=== PATIENT | female | born 1990 | race American Indian/Alaskan Native ===

== ENCOUNTER 2017-01-04 03:45 | Emergency (ER) | payer MEDICAID ==
--- NOTE | 2017-01-04 05:32 | Emergency Department Report ---
ED ENT HPI - General Chief complaint: Dental/Oral Stated complaint: FACIAL PAIN Time Seen by Provider: 01/04/17 05:22 Source: patient Mode of arrival: Ambulatory Limitations: No Limitations - History of Present Illness Initial comments: 26 y/o female complain of bilateral toothache x 3 days.pt state she need both wisdom tooth extracted .pt has mild edema noted to left jaw . MD complaint: tooth pain Onset/Timin -: days(s) Severity: mild Severity scale (0 -10): 3 Quality: aching Consistency: constant Improves with: none Worsens with: none Context- Dental: poor dental care Associated Symptoms: toothache - Related Data Previous Rx's Medication Instructions Recorded Last Taken Type Diclofenac Dr [Milo Oliver] 75 mg PO Q12H #30 tablet 11/10/14 Unknown Rx Prednisone [Prednisone 10 mg 10 mg PO .TAPER #1 tab.ds.pk 11/10/14 Unknown Rx (6-Day Pack, 21 Tabs)] Loratadine [Claritin] 10 mg PO DAILY #30 tablet 10/26/15 Unknown Rx Sulfamethoxazole/Trimethoprim 1 each PO BID #10 tablet 10/26/15 Unknown Rx [Bactrim DS TAB] HYDROcodone/APAP 10-325 [[place] 1 each PO Q8HR PRN #20 tablet 12/01/15 Unknown Rx 10/325] Erythromycin [Erythromycin Ophth 1 applicatio OU Q6HR #1 tube 06/10/16 Unknown Rx Oint] Acetaminophen/Codeine [Tylenol #3] 1 tab PO Q4HR PRN #15 tablet 01/04/17 Unknown Rx Penicillin Vk [Veetids TAB] 250 mg PO QID #28 tablet 01/04/17 Unknown Rx Allergies Allergy/AdvReac Type Severity Reaction Status Date / Time No Known Allergies Allergy Unverified 01/04/17 03:55 ED Dental HPI - General Chief complaint: Dental/Oral Stated complaint: FACIAL PAIN Time Seen by Provider: 01/04/17 05:22 Source: patient Mode of arrival: Ambulatory Limitations: No Limitations - Related Data Previous Rx's Medication Instructions Recorded Last Taken Type Diclofenac Dr [Milo Oliver] 75 mg PO Q12H #30 tablet 11/10/14 Unknown Rx Prednisone [Prednisone 10 mg 10 mg PO .TAPER #1 tab.ds.pk 11/10/14 Unknown Rx (6-Day Pack, 21 Tabs)] Loratadine [Claritin] 10 mg PO DAILY #30 tablet 10/26/15 Unknown Rx Sulfamethoxazole/Trimethoprim 1 each PO BID #10 tablet 10/26/15 Unknown Rx [Bactrim DS TAB] HYDROcodone/APAP 10-325 [[place] 1 each PO Q8HR PRN #20 tablet 12/01/15 Unknown Rx 10/325] Erythromycin [Erythromycin Ophth 1 applicatio OU Q6HR #1 tube 06/10/16 Unknown Rx Oint] Acetaminophen/Codeine [Tylenol #3] 1 tab PO Q4HR PRN #15 tablet 01/04/17 Unknown Rx Penicillin Vk [Veetids TAB] 250 mg PO QID #28 tablet 01/04/17 Unknown Rx Allergies Allergy/AdvReac Type Severity Reaction Status Date / Time No Known Allergies Allergy Unverified 01/04/17 03:55 ED Review of Systems ROS: Stated complaint: FACIAL PAIN Other details as noted in HPI Constitutional: denies: chills, fever Eyes: denies: eye pain, eye discharge, vision change ENT: dental pain. denies: ear pain, throat pain Respiratory: denies: cough, shortness of breath, wheezing Cardiovascular: denies: chest pain, palpitations Endocrine: no symptoms reported Gastrointestinal: denies: abdominal pain, nausea, diarrhea Genitourinary: denies: urgency, dysuria, discharge Musculoskeletal: denies: back pain, joint swelling, arthralgia Skin: denies: rash, lesions Neurological: denies: headache, weakness, paresthesias Psychiatric: denies: anxiety, depression Hematological/Lymphatic: denies: easy bleeding, easy bruising ED Past Medical Hx - Past Medical History Previous Medical History?: No - Surgical History Additional Surgical History: x 2, surgery for broken arm (right forearm) - Social History Smoking Status: Current Every Day Smoker Substance Use Type: Alcohol - Medications Home Medications: Home Medications Medication Instructions Recorded Confirmed Last Taken Type Diclofenac Dr [Milo Oliver] 75 mg PO Q12H #30 tablet 11/10/14 Unknown Rx Prednisone [Prednisone 10 mg 10 mg PO .TAPER #1 tab.ds.pk 11/10/14 Unknown Rx (6-Day Pack, 21 Tabs)] Loratadine [Claritin] 10 mg PO DAILY #30 tablet 10/26/15 Unknown Rx Sulfamethoxazole/Trimethoprim 1 each PO BID #10 tablet 10/26/15 Unknown Rx [Bactrim DS TAB] HYDROcodone/APAP 10-325 [[place] 1 each PO Q8HR PRN #20 tablet 12/01/15 Unknown Rx 10/325] Erythromycin [Erythromycin Ophth 1 applicatio OU Q6HR #1 tube 06/10/16 Unknown Rx Oint] Acetaminophen/Codeine [Tylenol #3] 1 tab PO Q4HR PRN #15 tablet 01/04/17 Unknown Rx Penicillin Vk [Veetids TAB] 250 mg PO QID #28 tablet 01/04/17 Unknown Rx ED Physical Exam - General Limitations: No Limitations General appearance: alert, in no apparent distress - Head Head exam: Present: atraumatic, normocephalic - Eye Eye exam: Present: normal appearance, PERRL Pupils: Present: normal accommodation - ENT ENT exam: Present: mucous membranes dry, mucous membranes moist - Expanded ENT Exam Expanded Mouth exam: Absent: drooling, trismus, muffled voice Teeth exam: Present: dental caries, gingival enlargement, other (bilateral wisdom teeth ) - Neck Neck exam: Present: normal inspection - Respiratory Respiratory exam: Present: normal lung sounds bilaterally. Absent: respiratory distress - Cardiovascular Cardiovascular Exam: Present: regular rate, normal rhythm. Absent: systolic murmur, diastolic murmur, rubs, gallop - GI/Abdominal GI/Abdominal exam: Present: soft, normal bowel sounds - Extremities Exam Extremities exam: Present: normal inspection - Back Exam Back exam: Present: normal inspection - Neurological Exam Neurological exam: Present: alert, oriented X3 - Psychiatric Psychiatric exam: Present: normal affect, normal mood - Skin Skin exam: Present: warm, dry, intact, normal color. Absent: rash ED Course Vital Signs 01/04/17 03:55 Temperature 98.7 F Pulse Rate 78 Respiratory 20 Rate Blood Pressure 123/77 O2 Sat by Pulse 100 Oximetry ED Medical Decision Making - Medical Decision Making bilateral wisdom teeth pain pt has soft tooth impaction to the left wisdom tooth pt to follow up with oral surgeon Critical care attestation.: If time is entered above; I have spent that time in minutes in the direct care of this critically ill patient, excluding procedure time. ED Disposition Clinical Impression: Tooth ache Disposition: DISCHARGED TO HOME OR SELFCARE Is pt being admited?: No Does the pt Need Aspirin: No Condition: Stable Instructions: Toothache (ED) Prescriptions: Acetaminophen/Codeine [Tylenol #3] 1 tab PO Q4HR PRN #15 tablet PRN Reason: Pain Penicillin Vk [Veetids TAB] 250 mg PO QID #28 tablet Referrals: PRIMARY CARE, [Primary Care Provider] - 3-5 Days Forms: Work/School Release Form(ED) Time of Disposition: 05:36
[2017-01-04 06:20] VITALS: BP 123/88
== END 2017-01-04 06:19 | disposition home or self-care (01) ==
LOC: ED 03:45
DX: K08.89 Other specified disorders of teeth and supporting structures (principal)
CPT/HCPCS: 99282

== ENCOUNTER 2017-11-02 19:29 | Emergency (ER) | payer MEDICAID ==
--- NOTE | 2017-11-02 22:15 | Emergency Department Report ---
ED Female HPI - General Chief complaint: Vaginal Bleeding Stated complaint: BLEEDING 9 WEEKS Time Seen by Provider: 11/02/17 21:51 Source: patient Mode of arrival: Ambulatory Limitations: No Limitations - History of Present Illness Initial comments: pt is a 27 y/o aaf wtih 9 weeks who presents for vaginal bleeding x 1 day pink, ocassional clots tp denies abdominal pain no pelvic pain no n/v no fever or chills Complaint: vaginal bleeding, pelvic pain Onset/Timin -: days(s) Radiation: non-radiating Severity: moderate Severity scale (0 -10): 2 Quality: cramping Consistency: intermittent Improves with: none Worsens with: none Are you Now?: Yes (9 weeks) Last Menstrual Period: 09/02/17 EDC: 06/09/18 Associated Symptoms: vaginal bleeding. denies: vaginal discharge, abdominal pain, nausea/vomiting, fever/chills, dysuria, weakness - Related Data Sexually active: Yes : 5 Para: 2 A: 2 Previous Rx's Medication Instructions Recorded Last Taken Type Diclofenac Dr [Voltjames Oliver] 75 mg PO Q12H #30 tablet 11/10/14 Unknown Rx Prednisone [Prednisone 10 mg 10 mg PO .TAPER #1 tab.ds.pk 11/10/14 Unknown Rx (6-Day Pack, 21 Tabs)] Loratadine [Claritin] 10 mg PO DAILY #30 tablet 10/26/15 Unknown Rx Sulfamethoxazole/Trimethoprim 1 each PO BID #10 tablet 10/26/15 Unknown Rx [Bactrim DS TAB] HYDROcodone/APAP 10-325 [[place] 1 each PO Q8HR PRN #20 tablet 12/01/15 Unknown Rx 10/325] Erythromycin [Erythromycin Ophth 1 applicatio OU Q6HR #1 tube 06/10/16 Unknown Rx Oint] Acetaminophen/Codeine [Tylenol #3] 1 tab PO Q4HR PRN #15 tablet 01/04/17 Unknown Rx Penicillin Vk [Veetids TAB] 250 mg PO QID #28 tablet 01/04/17 Unknown Rx Allergies Allergy/AdvReac Type Severity Reaction Status Date / Time No Known Allergies Allergy Unverified 01/04/17 03:55 ED Review of Systems ROS: Stated complaint: BLEEDING 9 WEEKS Other details as noted in HPI Constitutional: denies: chills, fever Eyes: denies: eye pain, eye discharge, vision change ENT: denies: ear pain, throat pain Respiratory: denies: cough, shortness of breath, wheezing Cardiovascular: denies: chest pain, palpitations Endocrine: no symptoms reported Gastrointestinal: denies: abdominal pain, nausea, vomiting, hematemesis Genitourinary: denies: urgency, dysuria, frequency, hematuria Musculoskeletal: denies: back pain, joint swelling, arthralgia Skin: denies: rash, lesions Neurological: denies: headache, weakness, paresthesias Psychiatric: denies: anxiety, depression Hematological/Lymphatic: denies: easy bleeding, easy bruising ED Past Medical Hx - Surgical History Additional Surgical History: x 2, surgery for broken arm (right forearm) - Social History Smoking Status: Current Every Day Smoker Substance Use Type: Alcohol - Medications Home Medications: Home Medications Medication Instructions Recorded Confirmed Last Taken Type Diclofenac Dr [Voltaren Dr] 75 mg PO Q12H #30 tablet 11/10/14 Unknown Rx Prednisone [Prednisone 10 mg 10 mg PO .TAPER #1 tab.ds.pk 11/10/14 Unknown Rx (6-Day Pack, 21 Tabs)] Loratadine [Claritin] 10 mg PO DAILY #30 tablet 10/26/15 Unknown Rx Sulfamethoxazole/Trimethoprim 1 each PO BID #10 tablet 10/26/15 Unknown Rx [Bactrim DS TAB] HYDROcodone/APAP 10-325 [[place] 1 each PO Q8HR PRN #20 tablet 12/01/15 Unknown Rx 10/325] Erythromycin [Erythromycin Ophth 1 applicatio OU Q6HR #1 tube 06/10/16 Unknown Rx Oint] Acetaminophen/Codeine [Tylenol #3] 1 tab PO Q4HR PRN #15 tablet 01/04/17 Unknown Rx Penicillin Vk [Veetids TAB] 250 mg PO QID #28 tablet 01/04/17 Unknown Rx ED Physical Exam - General Limitations: No Limitations General appearance: alert, in no apparent distress - Head Head exam: Present: atraumatic, normocephalic - Eye Eye exam: Present: normal appearance - ENT ENT exam: Present: mucous membranes moist - Neck Neck exam: Present: normal inspection - Respiratory Respiratory exam: Present: normal lung sounds bilaterally. Absent: respiratory distress - Cardiovascular Cardiovascular Exam: Present: regular rate, normal rhythm. Absent: systolic murmur, diastolic murmur, rubs, gallop - GI/Abdominal GI/Abdominal exam: Present: soft, normal bowel sounds - Rectal Rectal exam: Present: deferred - External exam: Present: normal external exam Speculum exam: Present: other (pt deferres vaginal exam to PRICING DIRECTOR follow up ) - Extremities Exam Extremities exam: Present: normal inspection - Back Exam Back exam: Present: normal inspection, full ROM. Absent: tenderness, CVA tenderness (R), CVA tenderness (L), muscle spasm, paraspinal tenderness, vertebral tenderness, rash noted - Neurological Exam Neurological exam: Present: alert, oriented X3, CN II-XII intact, normal gait - Psychiatric Psychiatric exam: Present: normal affect, normal mood - Skin Skin exam: Present: warm, dry, intact, normal color. Absent: rash ED Course Vital Signs 11/02/17 11/02/17 11/02/17 19:48 19:51 22:29 Temperature 98.8 F Pulse Rate 78 75 70 Respiratory 16 Rate Blood Pressure 115/78 115/79 Blood Pressure [Left] O2 Sat by Pulse 99 100 100 Oximetry 11/02/17 22:33 Temperature 98.2 F Pulse Rate Respiratory 18 Rate Blood Pressure Blood Pressure 109/78 [Left] O2 Sat by Pulse 100 Oximetry ED Medical Decision Making - Lab Data Result diagrams: 11/02/17 21:56 Laboratory Tests 11/02/17 11/02/17 11/02/17 21:53 21:56 21:56 WBC 11.5 H RBC 4.44 Hgb 12.0 Hct 36.7 MCV 83 MCH 27 L MCHC 33 RDW 14.4 Plt Count 324 Lymph % (Auto) 28.2 [place] % (Auto) 6.7 Eos % (Auto) 1.3 Baso % (Auto) 0.6 Lymph # 3.2 [place] # 0.8 Eos # 0.2 Baso # 0.1 Seg Neutrophils % 63.2 Seg Neutrophils # 7.2 HCG, Quant 8559 H Urine Color Yellow Urine Turbidity Clear Urine pH 5.0 Ur Specific [place] 1.014 Urine Protein <15 mg/dl Urine Glucose (UA) Neg Urine Ketones Neg Urine Blood Neg Urine Nitrite Neg Urine Bilirubin Neg Urine Urobilinogen < 2.0 Ur Leukocyte Esterase Neg Urine WBC (Auto) 2.0 Urine RBC (Auto) < 1.0 U Epithel Cells (Auto) 1.0 - Medical Decision Making pt is a 27 y/o aaf wtih 9 weeks who presents for vaginal bleeding x 1 day pink, ocassional clots tp denies abdominal pain no pelvic pain no n/v no fever or chills exam: abd bs normal soft nontender pt deferrs vaginal exam to stockroom helper follow up, labs noted ua: norm, cbc: wbc 11.5, hc us: Gestational sac in uterus, no fefinitive pole identified , could reflect early gestation versus missed ab. US: likely demise, pt advised of all diagnostic results, this is 5 th G5, P2, A2, spontanious 1 this episode, will follow up with Arin MENENDEZ or Zaid tomorrow given referral to Zaid Castorena, pt verbalized agreement and understanding of same. Critical care attestation.: If time is entered above; I have spent that time in minutes in the direct care of this critically ill patient, excluding procedure time. ED Disposition Clinical Impression: Threatened miscarriage Disposition: DC-01 TO HOME OR SELFCARE Is pt being admited?: No Does the pt Need Aspirin: No Condition: Good Instructions: Threatened Miscarriage (ED) Additional Instructions: followup with your PRICING DIRECTOR tomorrow as discussed Referrals: PRIMARY CAREMD [Primary Care Provider] - 3-5 Days LORIE HERNANDEZ MD [Staff Physician] - 3-5 Days Forms: Work/School Release Form(ED) Time of Disposition: 00:45
[2017-11-02 22:17] LABS: Basophils % (Auto) 0.6 % (0.0-1.8); Eosinophils % (Auto) 1.3 % (0.0-4.3); Hematocrit 36.7 % (30.3-42.9); Mean Corpuscular HGB Conc 33 % (30-34); Mean Corpuscular Hemoglobin 27 pg (28-32); Mean Corpuscular Volume 83 fl (79-97); Platelet Count 324 K/mm3 (140-440); Red Blood Count 4.44 M/mm3 (3.65-5.03); Red Cell Distribution Width 14.4 % (13.2-15.2); White Blood Count 11.5 K/mm3 (4.5-11.0)
[2017-11-02 22:22] LABS: Bilirubin,Urine NEG (Negative); Blood,Urine NEG (Negative); Ketones,Urine NEG (Negative); Leukocyte Esterase,Urine NEG (Negative); Nitrite,Urine NEG (Negative); Protein,Urine <15 mg/dL mg/dL (Negative); Urobilinogen,Urine < 2.0 mg/dL (<2.0)
[2017-11-02 22:33] VITALS: BP 109/78
[2017-11-02 22:40] LABS: RBC,Urine < 1.0 /HPF (0.0-6.0)
--- NOTE | 2017-11-02 23:56 | Ultrasound Report ---
FINAL REPORT EXAM: US OB TRANSVAGINAL HISTORY: vaginal bleeding TECHNIQUE: Ultrasound obstetrical transvaginal PRIORS: None. FINDINGS: There is a small gestational sac present within the uterus measuring 1.68 centimeters. By sac diameter estimated at 6 weeks 4 days There is no pole identified. There is few echoes present within the sac. Left ovary is 1.98 x 1.32 x 1.67 centimeters Right ovary is 2.05 x 2.33 x 3.15 centimeters. No abnormal adnexal mass identified No free fluid is seen within the cul-de-sac. IMPRESSION: Gestational sac seen within the uterus. No definitive pole identified. Could reflect very early gestation versus missed AB. Continued followup recommended
--- NOTE | 2017-11-03 00:02 | Ultrasound Report ---
FINAL REPORT EXAM: US OB < = 14 WEEKS FETUS HISTORY: vaginal bleeding TECHNIQUE: PRIORS: None. FINDINGS: There is a small gestational sac present within the uterus measuring 1.68 centimeters. By sac diameter estimated at 6 weeks 4 days There is no pole identified. There is few echoes present within the sac. Left ovary is 1.98 x 1.32 x 1.67 centimeters Right ovary is 2.05 x 2.33 x 3.15 centimeters. No abnormal adnexal mass identified No free fluid is seen within the cul-de-sac. IMPRESSION: Gestational sac seen within the uterus. No definitive pole identified. Could reflect very early gestation versus missed AB. Continued followup recommended
== END 2017-11-03 00:54 | disposition home or self-care (01) ==
LOC: ED 19:29
DX: O20.0 Threatened abortion (principal); Z3A.09 9 weeks gestation of pregnancy; O99.331 Smoking (tobacco) complicating pregnancy, first trimester
CPT/HCPCS: 36415; 76801; 76817; 81001; 84702; 85025

== ENCOUNTER → 2018-03-26 01:02 | Emergency (ER) | payer MEDICAID | END | disposition left against medical advice (07) | LOC: ED 01:02 | DX: Z04.3 Encounter for examination and observation following other accident (principal); Z53.21 Procedure and treatment not carried out due to patient leaving prior to being seen by health care provider; W19.XXXA Unspecified fall, initial encounter; Y93.89 Activity, other specified; Y99.8 Other external cause status; Y92.89 Other specified places as the place of occurrence of the external cause ==

== ENCOUNTER 2018-05-29 17:32 | Outpatient (CLI) | payer MEDICAID ==
[2018-05-29] MEDS ORDERED: LACTATED RINGERS 500 ML IV ONE (17:40)
[2018-05-29 19:39] VITALS: BP 106/68
[2018-05-29] MEDS ORDERED: LACTATED RINGERS 1,000 ML ONE (20:27)
[2018-05-29] MEDS ORDERED: LACTATED RINGERS 1,000 ML IV ONE (20:28)
[2018-05-29] MEDS: BRETHINE SUB-Q SCH ×3 (20:39→21:41)
[2018-05-29 21:54] LABS: Bilirubin,Urine NEG (Negative); Blood,Urine NEG (Negative); Color,Urine Yellow (Yellow); Protein,Urine <15 mg/dL mg/dL (Negative); Urobilinogen,Urine < 2.0 mg/dL (<2.0); WBC,Urine < 1.0 /HPF (0.0-6.0)
== END 2018-05-29 22:27 | disposition home or self-care (01) ==
LOC: TRG 17:32
PROVIDERS: ATTEND Obstetrics & Gynecology
DX: O47.03 False labor before 37 completed weeks of gestation, third trimester (principal); Z3A.28 28 weeks gestation of pregnancy; Z87.891 Personal history of nicotine dependence
CPT/HCPCS: 81001; 96360; 96361; 96372; J3105; J7120

== ENCOUNTER 2018-07-16 19:54 | Outpatient (CLI) | payer MEDICAID ==
[2018-07-16 20:13] VITALS: BP 128/71
[2018-07-16] MEDS ORDERED: LACTATED RINGERS 500 ML IV ONE (20:23)
[2018-07-16 21:40] LABS: Bilirubin,Urine NEG (Negative); Blood,Urine NEG (Negative); Color,Urine Yellow (Yellow); Mucus,Urine FEW /HPF; Urobilinogen,Urine < 2.0 mg/dL (<2.0)
[2018-07-16] MEDS ORDERED: LACTATED RINGERS 1,000 ML IV SCH (22:00)
[2018-07-16] MEDS ORDERED: ceFAZolin 2 GM in NACL 0.9% 100 ML IV ONE (22:08)
[2018-07-16] MEDS ORDERED: ANCEF/STERILE WATER 2 GM/20 ML 2 GM/20 ML SYRINGE IV SCH (23:00)
[2018-07-16] MEDS: BRETHINE SUB-Q SCH ×2 (23:29→23:53)
== END 2018-07-17 00:35 | disposition home or self-care (01) ==
LOC: TRG 19:54
PROVIDERS: ATTEND Obstetrics & Gynecology
DX: O62.8 Other abnormalities of forces of labor (principal); Z3A.38 38 weeks gestation of pregnancy; Z87.891 Personal history of nicotine dependence
CPT/HCPCS: 59025; 81001; 96360; 96361; 96372; 96374; J0690; J3105; J7120

== ENCOUNTER 2019-02-24 15:51 | Emergency (ER) | payer MEDICAID, OTHER ==
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
[2019-02-24] MEDS ORDERED: IBUPROFEN PO ONE (16:34)
[2019-02-24 16:56] LABS: Bilirubin,Urine NEG (Negative); Blood,Urine NEG (Negative); Color,Urine Yellow (Yellow); Protein,Urine <15 mg/dL mg/dL (Negative); RBC,Urine < 1.0 /HPF (0.0-6.0); Urobilinogen,Urine < 2.0 mg/dL (<2.0)
[2019-02-24 16:57] LABS: HCG Qualitative,Urine Negative (Negative)
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
[2019-02-24 19:52] VITALS: BP 118/68
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
== END 2019-02-24 21:29 | disposition home or self-care (01) ==
LOC: ED 15:51
DX: S80.02XA Contusion of left knee, initial encounter (principal); M24.572 Contracture, left ankle; F17.200 Nicotine dependence, unspecified, uncomplicated; M54.5 Low back pain; V47.5XXA Car driver injured in collision with fixed or stationary object in traffic accident, initial encounter; Y93.89 Activity, other specified; Y92.410 Unspecified street and highway as the place of occurrence of the external cause; Y99.8 Other external cause status
CPT/HCPCS: 72131; 81001; 81025

== ENCOUNTER 2019-04-23 12:48 | Emergency (ER) | payer MEDICAID, OTHER ==
--- NOTE | 2019-04-23 13:08 | Emergency Department Report ---
Blank Doc - Documentation Documentation: This is a 29-year-old female that presents with right knee pain. Stated had a fall last month and is getting worse. This initial assessment/diagnostic orders/clinical plan/treatment(s) is/are subject to change based on patient's health status, clinical progression and re-assessment by fellow clinical providers in the ED. Further treatment and workup at subsequent clinical providers discretion. Patient/guardians urged not to elope from the ED as their condition may be serious if not clinically assessed and managed. Initial orders include: 1- Patient sent to [facility] for further evaluation and treatment 2- xray
[2019-04-23 13:12] VITALS: BP 121/77
--- NOTE | 2019-04-23 13:27 | XRay Report ---
RIGHT KNEE, 3 views: History: Right knee pain. The bony architecture is intact without evidence of fracture or dislocation. No significant soft tissue abnormality is seen. IMPRESSION: Normal right knee.
--- NOTE | 2019-04-23 14:05 | Emergency Department Report ---
ED Lower Extremity HPI - General Chief Complaint: Extremity Injury, Lower Stated Complaint: R KNEE PAIN Time Seen by Provider: 04/23/19 13:07 Source: patient Mode of arrival: Ambulatory Limitations: No Limitations - History of Present Illness Initial Comments: María Elena is a very pleasant healthy 29-year-old female who injured her right knee at home. She tripped in her living room . She felt her knee pop out of place. It popped back in place. However since that time she's had knee pain on both the lateral and medial regions. She is ambulatory without difficulty. She just wanted to ensure that a fracture was not present. Currently awaiting health insurance with her job. Complaint: knee injury -: Sudden, month(s) (1) Injury: Knee: Right Place: home Severity: mild Context: other (twisting) Associated Symptoms: snap/pop sensation - Related Data Home Medications Medication Instructions Recorded Confirmed Last Taken Vit-Fe Fumar-FA [ 1 tab PO QDAY 07/16/18 07/29/18 07/16/18 Vitamin] Previous Rx's Medication Instructions Recorded Last Taken Type Ibuprofen [Motrin 800 MG tab] 800 mg PO Q8HR PRN #30 tablet 07/26/18 Unknown Rx Multivitamin with Iron 1 each PO DAILY #30 tablet 07/26/18 Unknown Rx [Multivitamins with Iron] oxyCODONE /ACETAMINOPHEN [Percocet 1 tab PO Q6HR PRN #30 tablet 07/26/18 Unknown Rx 5/325] Labetalol [Labetalol 200mg TAB] 200 mg PO BID #60 tablet 07/27/18 Unknown Rx Ferrous Sulfate [Feosol 325 MG tab] 325 mg PO BID #60 tablet 07/30/18 Unknown Rx Labetalol [Labetalol 200mg TAB] 200 mg PO BID #60 tablet 07/30/18 Unknown Rx Baclofen [Lioresal] 10 mg PO TID #15 tab 02/24/19 Unknown Rx Naproxen [Naprosyn TAB] 500 mg PO BID #20 tablet 02/24/19 Unknown Rx Allergies Allergy/AdvReac Type Severity Reaction Status Date / Time No Known Allergies Allergy Verified 04/23/19 13:09 ED Review of Systems ROS: Stated complaint: R KNEE PAIN Other details as noted in HPI Constitutional: denies: fever, malaise Skin: denies: rash, lesions Neurological: denies: numbness, paresthesias ED Past Medical Hx - Past Medical History Previous Medical History?: Yes Hx Hypertension: No Hx Congestive Heart Failure: No Hx Diabetes: No Hx Deep Vein Thrombosis: No Hx Renal Disease: No Hx Sickle Cell Disease: No Hx Seizures: No Hx Asthma: No Hx COPD: No Hx HIV: No - Surgical History Past Surgical History?: Yes Additional Surgical History: x 2, surgery for broken arm (right forearm) - Social History Smoking Status: Current Every Day Smoker Substance Use Type: Alcohol - Medications Home Medications: Home Medications Medication Instructions Recorded Confirmed Last Taken Type Vit-Fe Fumar-FA [ 1 tab PO QDAY 07/16/18 07/29/18 07/16/18 History Vitamin] Ibuprofen [Motrin 800 MG tab] 800 mg PO Q8HR PRN #30 tablet 07/26/18 Unknown Rx Multivitamin with Iron 1 each PO DAILY #30 tablet 07/26/18 Unknown Rx [Multivitamins with Iron] oxyCODONE /ACETAMINOPHEN [Percocet 1 tab PO Q6HR PRN #30 tablet 07/26/18 Unknown Rx 5/325] Labetalol [Labetalol 200mg TAB] 200 mg PO BID #60 tablet 07/27/18 Unknown Rx Ferrous Sulfate [Feosol 325 MG tab] 325 mg PO BID #60 tablet 07/30/18 Unknown Rx Labetalol [Labetalol 200mg TAB] 200 mg PO BID #60 tablet 07/30/18 Unknown Rx Baclofen [Lioresal] 10 mg PO TID #15 tab 02/24/19 Unknown Rx Naproxen [Naprosyn TAB] 500 mg PO BID #20 tablet 02/24/19 Unknown Rx ED Physical Exam - General Limitations: No Limitations General appearance: alert, in no apparent distress - Head Head exam: Present: atraumatic, normocephalic - Eye Eye exam: Present: normal appearance - ENT ENT exam: Present: mucous membranes moist - Neck Neck exam: Present: normal inspection, full ROM - Respiratory Respiratory exam: Absent: respiratory distress - Expanded Lower Extremity Exam Right Upper Leg exam: Present: normal inspection, full ROM, tenderness Knee exam: Present: normal inspection, full ROM. Absent: tenderness, swelling, laceration, ecchymosis, deformity, crepidus, dislocation, effusion Lower Leg exam: Present: normal inspection, full ROM. Absent: swelling - Neurological Exam Neurological exam: Present: alert, oriented X3 - Psychiatric Psychiatric exam: Present: normal affect, normal mood - Skin Skin exam: Present: warm, dry, intact, normal color ED Course Vital Signs 04/23/19 13:10 Temperature 98.7 F Pulse Rate 92 H Respiratory 16 Rate Blood Pressure 121/77 O2 Sat by Pulse 98 Oximetry ED Lower Extremity MDM - Medical Decision Making Knee sprain with history of patellar dislocation strongly recommended orthopedic surgeon for physical therapy Also recommended NSAIDs Critical care attestation.: If time is entered above; I have spent that time in minutes in the direct care of this critically ill patient, excluding procedure time. ED Disposition Clinical Impression: Right knee sprain, Closed dislocation of right patella Disposition: - TO HOME OR SELFCARE Is pt being admited?: No Does the pt Need Aspirin: No Condition: Stable Instructions: Patellar Dislocation (ED), Knee Sprain (ED) Referrals: DANIEL SALMERON MD [Staff Physician] - as needed Forms: Work/School Release Form(ED)
== END 2019-04-23 14:18 | disposition home or self-care (01) ==
LOC: ED 12:48
DX: S83.91XA Sprain of unspecified site of right knee, initial encounter (principal); S83.004A Unspecified dislocation of right patella, initial encounter; F17.200 Nicotine dependence, unspecified, uncomplicated; W18.40XA Slipping, tripping and stumbling without falling, unspecified, initial encounter; Y93.89 Activity, other specified; Y92.89 Other specified places as the place of occurrence of the external cause; Y99.8 Other external cause status